=== PATIENT | female | born 1960 | race Caucasian/White ===

== ENCOUNTER 2017-03-06 09:24 | Day surgery (SDC) | payer BC ==
[2017-03-06] MEDS ORDERED: Lactated Ringers 1,000 ML IV SCH (09:30)
[2017-03-06] MEDS ORDERED: Sodium Chloride 0.9% 10 ML Syringe FLUSH PRN (09:30)
[2017-03-06] MEDS ORDERED: fentaNYL 100 MCG/2 ML SDV ONE ×2 (10:20→10:33)
[2017-03-06] MEDS ORDERED: Midazolam 1 MG/ML 2 ML SDV ONE ×2 (10:20→10:33)
[2017-03-06] MEDS ORDERED: Propofol 200 MG/20 ML SDV ONE ×2 (10:21→10:33)
--- NOTE | 2017-03-06 10:27 | PCM.HPR ---
H & P Addendum review - H & P Addendum Review Date of Original H & P: 02/25/17 Date Reviewed: 03/06/17 Time Reviewed: 10:27 Patient was Examined: No Changes
--- NOTE | 2017-03-06 10:50 | PCM.OPNOTE ---
- General Post-Op/Procedure Note Date of Surgery/Procedure: 03/06/17 Operative Procedure(s): Colonoscopy Findings: Normal Pre Op Diagnosis: FH Colon Polyps Post-Op Diagnosis: Same Anesthesia Technique: MAC Primary Surgeon: Gilbert Norton Anesthesia Provider: Alysa Colindres Complications: None Condition: Good Free Text/Narrative:: Intake & Output 03/05/17 03/06/17 03/06/17 22:59 06:59 14:59 Intake Total 400 Balance 400
--- NOTE | 2017-03-06 13:44 | OR ---
Date of Procedure: 03/06/2017 PREOPERATIVE DIAGNOSIS: Family history of colon polyps. POSTOPERATIVE DIAGNOSIS: Normal colonoscopy. PROCEDURE: Colonoscopy. ANESTHESIA: IV sedation. PROCEDURE IN DETAIL: The patient was brought to the procedure room where she was placed on her left side and IV sedation administered. Digital rectal exam was performed which was normal. Colonoscope was inserted and advanced to the level of the cecum without difficulty. Cecal position was confirmed by identifying the appendiceal lumen and ileocecal valve. Prep was good, and surfaces were well visualized. Upon withdrawing the scope, the ascending, transverse, and descending colon were normal in appearance. Sigmoid colon and rectum were normal. Retroflexion was normal. Air was removed and the scope withdrawn. The patient tolerated the procedure well and returned to recovery in stable condition. Recommend routine colon screening again in 5 years. DELMY WOLF MD /[id number]
[2017-03-06 13:54] VITALS: BP 108/57
== END 2017-03-06 12:20 | disposition home or self-care (01) ==
LOC: LL.SDS 09:24
PROVIDERS: ATTEND Surgery
DX: Z12.11 Encounter for screening for malignant neoplasm of colon (principal); J45.30 Mild persistent asthma, uncomplicated; E78.5 Hyperlipidemia, unspecified; Z83.71 Family history of colonic polyps; Z88.1 Allergy status to other antibiotic agents; Z88.2 Allergy status to sulfonamides; Z88.8 Allergy status to other drugs, medicaments and biological substances; Z91.040 Latex allergy status; Z79.899 Other long term (current) drug therapy
CPT/HCPCS: 45378; J2250; J2704; J3010; J7120

== ENCOUNTER 2022-02-28 10:29 | Day surgery (SDC) | payer MEDICARE, OTHER ==
[~2022-02-28 10:29] MED LIST: Midazolam 1 MG/ML 2 ML SDV ONE; Propofol 200 MG/20 ML SDV ONE
[2022-02-28] MEDS ORDERED: Sodium Chloride 0.9% 10 ML Syringe FLUSH PRN (10:30)
[2022-02-28] MEDS ORDERED: Lactated Ringers 1,000 ML IV SCH (10:30)
[2022-02-28 17:20] VITALS: BP 124/73; PULSE 76
== END 2022-02-28 12:58 | disposition home or self-care (01) ==
LOC: LL.SDS 10:29
PROVIDERS: ATTEND Surgery
DX: Z12.11 Encounter for screening for malignant neoplasm of colon (principal); D12.5 Benign neoplasm of sigmoid colon; E78.00 Pure hypercholesterolemia, unspecified; J45.909 Unspecified asthma, uncomplicated; E78.5 Hyperlipidemia, unspecified; G43.909 Migraine, unspecified, not intractable, without status migrainosus; Z80.0 Family history of malignant neoplasm of digestive organs; Z88.8 Allergy status to other drugs, medicaments and biological substances; Z91.040 Latex allergy status; Z88.2 Allergy status to sulfonamides; Z79.899 Other long term (current) drug therapy
CPT/HCPCS: 00812; J2250; J2704; J7120